=== PATIENT | male | born 1995 | race Caucasian/White ===

== ENCOUNTER 2021-05-05 18:49 | Emergency (ER) | payer OTHER | END 2021-05-05 20:08 | disposition home or self-care (01) | LOC: FER 18:49 | DX: S87.81XA Crushing injury of right lower leg, initial encounter (principal); F17.210 Nicotine dependence, cigarettes, uncomplicated; W22.8XXA Striking against or struck by other objects, initial encounter | CPT/HCPCS: 73590 ==

== ENCOUNTER 2021-08-05 07:16 | Emergency (ER) | payer SELFPAY | END 2021-08-05 09:14 | disposition home or self-care (01) | LOC: FER 07:16 | DX: T16.1XXA Foreign body in right ear, initial encounter (principal) ==

== ENCOUNTER 2021-10-27 05:08 | Emergency (ER) | payer OTHER ==
[2021-10-27 05:53] LABS: BASOPHIL 0.6 % (0-2); EOSINOPHIL 0.9 % (0-5); HCT 46.8 % (42.0-52.0); HGB 16.2 g/dl (13.2-18.0); LYMPHOCYTE 4.8 % (15-48); MCH 30.7 pg (25.0-31.0); MCHC 34.6 g/dL (32.0-36.0); MCV 88.6 fL (78.0-100.0); MONOCYTE 7.9 % (0-12); MPV 10.1 fL (6.0-9.5); NEUTROPHIL 85.6 % (41-80); NRBC 0; PLT 227 K/uL (150-400); RBC 5.28 M/uL (4.70-6.00); RDW 13.2 % (11.5-14.0); WBC 8.2 K/uL (4.0-10.5)
[2021-10-27 07:13] LABS: INFLUENZA A NAA NEGATIVE (NEGATIVE)
[2021-10-27 07:16] LABS: CORONAVIRUS 2019 SARS-COV-2 POSITIVE (NEGATIVE)
[2021-10-27 07:42] LABS: ALBUMIN 3.9 g/dL (3.4-5.0); ALKALINE PHOSHATASE 62 U/L (46-116); ALT 182 U/L (16-63); AST 78 U/L (15-37); BILIRUBIN - TOTAL 0.3 mg/dL (0.2-1.0); BUN 14 mg/dL (7-18); BUN/CREAT RATIO (CALC) 17.7 RATIO; C-REACTIVE PROTEIN < 2.00 mg/dL (<=0.90); CHLORIDE 105 mmol/L (98-107); CO2 (BICARBONATE) 26 mmol/L (21-32); CREATININE 0.79 mg/dL (0.67-1.17); GLOBULIN (CALCULATION) 3.2 g/dL; GLUCOSE 105 mg/dL (74-106); LIPASE 308 U/L (73-393); TOTAL PROTEIN 7.1 g/dL (6.4-8.2)
[2021-10-27] MEDS ORDERED: PHENERGAN25 M1 PO (07:50)
[2021-10-27] MEDS ORDERED: AZITHROMYCIN250 MG PO (07:50)
[2021-10-27] MEDS ORDERED: ONDANSETRON ODT4 MG PO (07:50)
[2021-10-27] MEDS ORDERED: PREDNISONE 20MG20 MG PO (07:50)
== END 2021-10-27 08:30 | disposition home or self-care (01) ==
LOC: FER 05:08
PROVIDERS: Internal Medicine
DX: U07.1 COVID-19 (principal); F17.210 Nicotine dependence, cigarettes, uncomplicated
CPT/HCPCS: 36415; 71045; 80053; 83690; 84145; 85025; 86140; J1100; J2405; J2550; J3475; J7120; U0002